=== PATIENT | female | born 1965 | race Two or more races ===

== ENCOUNTER → 2019-01-30 | Day surgery (SDC) | payer OTHER ==
[~2019-01-30] VITALS: Ht 154.9 cm; Wt 63.5 kg
[2019-01-30 08:14] VITALS: BP 157/85
[2019-01-30 12:06] VITALS: BP 147/66
== END | disposition home or self-care (01) ==
LOC: DS 07:31 → OR 09:30 → DS 09:30
DX: K29.50 Unspecified chronic gastritis without bleeding (principal); K57.30 Diverticulosis of large intestine without perforation or abscess without bleeding; K44.9 Diaphragmatic hernia without obstruction or gangrene; K59.00 Constipation, unspecified; K21.9 Gastro-esophageal reflux disease without esophagitis; Z90.49 Acquired absence of other specified parts of digestive tract; Z98.890 Other specified postprocedural states
CPT/HCPCS: 43235; 45378; J1200; J1610; J2250; J2310; J3010; J3490